=== PATIENT | male | born 1965 | race Caucasian/White ===

== ENCOUNTER 2022-04-21 12:25 | Emergency (ER) | payer OTHER ==
[2022-04-21 12:56] VITALS: BP 144/94; PULSE 102; RESP 20; TEMP 98.8; BMI 20.3
[2022-04-21] MEDS ORDERED: MAG HYDROX/AL HYDROX/SIMETH -MYLANTA- ORAL SUSPENSION PO ONE (13:49)
[2022-04-21] MEDS ORDERED: ACETAMINOPHEN 325 MG TABLET (FP) PO ONE (13:50)
[2022-04-21] MEDS ORDERED: FAMOTIDINE 20 MG/50 ML IVPB 20 MG/50 ML MG IVPB ONE ×2 (13:50→15:05)
[2022-04-21 14:32] LABS: HEMATOCRIT 43.6 % (35.4-49); MCH 31.4 pg (25.7-33.7); MCHC 34.4 g/dl (32.0-35.9); MEAN CELL VOLUME 91.4 fl (80-96); MEAN PLT VOLUME 6.6 fl (7.5-11.1); PLATELET COUNT 294 10^3/uL (134-434); RBC 4.77 M/mm3 (4.00-5.60); RDW 16.5 % (11.9-15.9); WHITE BLOOD COUNT 7.4 K/mm3 (4.0-10.0)
[2022-04-21 14:55] LABS: CALCIUM 8.9 mg/dL (8.5-10.1)
[2022-04-21 14:56] LABS: ALBUMIN 3.6 g/dl (3.4-5.0); BLOOD UREA NITROGEN 8.3 mg/dL (7-18); MAGNESIUM 2.3 mg/dL (1.8-2.4)
[2022-04-21 14:59] LABS: CREATININE 0.6 mg/dL (0.55-1.3); PHOSPHOROUS 3.1 mg/dL (2.5-4.9)
[2022-04-21 15:00] LABS: BILIRUBIN,TOTAL 0.6 mg/dL (0.2-1)
[2022-04-21] MEDS ORDERED: ALBUTEROL SO4 2.5/IPRATROPIUM 0.5 INH SOL 3 ML VIAL.NEB. NEB ONE (15:04)
[2022-04-21] MEDS ORDERED: ACETAMINOPHEN 325 MG TABLET (FP) ONE (15:04)
[2022-04-21] MEDS ORDERED: MAG HYDROX/AL HYDROX/SIMETH 30 ML UNIT-DOSE CUP ONE (15:05)
[2022-04-21] MEDS: ALBUTEROL SO4 2.5/IPRATROPIUM 0.5 INH SOL 3 ML VIAL.NEB. NEB SCH ×4 (15:12→16:00)
[2022-04-21] MEDS ORDERED: chlordiazePOXIDE HCL 25 MG CAPSULE PO ONE (17:28)
[2022-04-21] MEDS ORDERED: chlordiazePOXIDE HCL 25 MG CAPSULE ONE (17:49)
== END 2022-04-21 19:23 | disposition home or self-care (01) ==
LOC: JER 12:25
PROC: 3E0F7GC Introduction of Other Therapeutic Substance into Respiratory Tract, Via Natural or Artificial Opening (ICD-10-PCS; principal; 2022-04-21)
PROC: 3E033GC Introduction of Other Therapeutic Substance into Peripheral Vein, Percutaneous Approach (ICD-10-PCS; 2022-04-21)
DX: R10.13 Epigastric pain (principal)
CPT/HCPCS: 0241U-QW; 36415; 71046-TC-FY; 80053; 83690; 83735; 84100; 84484; 85027; 93005; 93010; 99285-25

== ENCOUNTER 2022-07-19 11:13 | Inpatient (IN) | payer OTHER ==
[2022-07-19 12:22] VITALS: BMI 24.1
[2022-07-19] MEDS ORDERED: LOPERAMIDE HCL 2 MG CAPSULE PO PRN (12:48)
[2022-07-19] MEDS ORDERED: IBUPROFEN 600 MG TABLET (FP) PO PRN (12:48)
[2022-07-19] MEDS ORDERED: ACETAMINOPHEN 325 MG TABLET (FP) PO PRN (12:48)
[2022-07-19] MEDS ORDERED: MAGNESIUM HYDROX 2400MG/30ML ORAL SUSPENSION 30 ML CUP PO PRN (12:48)
[2022-07-19] MEDS ORDERED: NICOTINE 10 MG CARTRIDGE (INHALER) IH PRN (12:48)
[2022-07-19] MEDS ORDERED: NALOXONE HCL (KLOXXADO) 8 MG SPRAY NS PRN (12:48)
[2022-07-19] MEDS ORDERED: BENZOCAINE/MENTHOL (CHLORASEPTIC ) LOZENGE MM PRN (12:48)
[2022-07-19] MEDS ORDERED: POLYETHYLENE GLYCOL (HEALTHYLAX) 3350 17 GM PACKET PO PRN (12:48)
[2022-07-19] MEDS ORDERED: ONDANSETRON *ODT* 4 MG TABLET SL PRN (12:48)
[2022-07-19] MEDS ORDERED: IBUPROFEN 400 MG TABLET (FP) PO PRN (12:48)
[2022-07-19] MEDS: LORazepam 1 MG TABLET PO PRN ×2 (13:43→20:53)
[2022-07-19] MEDS ORDERED: LORazepam 1 MG TABLET ONE (13:45)
[2022-07-19] MEDS: PRENATAL VITAMINS W/ FOLIC ACID TABLET (FP) PO SCH (14:34)
[2022-07-19] MEDS ORDERED: PRENATAL VITAMINS W/ FOLIC ACID TABLET (FP) PO ONE (14:35)
[2022-07-19] MEDS: LORazepam 2 MG TABLET PO SCH ×2 (17:17→22:54)
[2022-07-19] MEDS: ALBUTEROL SO4 HFA INHALER IH PRN (17:42)
[2022-07-19] MEDS: MAG HYDROX/AL HYDROX/SIMETH 30 ML UNIT-DOSE CUP PO PRN (17:43)
[2022-07-19 17:54] LABS: HEMATOCRIT 44.5 % (35.4-49); MCH 31.7 pg (25.7-33.7); MCHC 33.8 g/dl (32.0-35.9); MEAN CELL VOLUME 93.8 fl (80-96); MEAN PLT VOLUME 7.4 fl (7.5-11.1); PLATELET COUNT 275 10^3/uL (134-434); RBC 4.75 M/mm3 (4.00-5.60); RDW 13.8 % (11.9-15.9); WHITE BLOOD COUNT 7.7 K/mm3 (4.0-10.0)
[2022-07-19 18:04] LABS: ALBUMIN 3.7 g/dl (3.4-5.0); BILIRUBIN,TOTAL 0.8 mg/dL (0.2-1); BLOOD UREA NITROGEN 8.5 mg/dL (7-18); CALCIUM 9.2 mg/dL (8.5-10.1); CREATININE 0.8 mg/dL (0.55-1.3); TOT PROT 6.7 g/dl (6.4-8.2)
[2022-07-19] MEDS: THIAMINE HCL 100 MG TABLET (FP) PO SCH (22:54)
[2022-07-19] MEDS: MELATONIN 5 MG TABLETS PO SCH (22:54)
[2022-07-20] MEDS: ALBUTEROL SO4 HFA INHALER IH PRN ×3 (05:17→22:11)
[2022-07-20] MEDS: LORazepam 2 MG TABLET PO SCH ×4 (05:17→22:10)
[2022-07-20] MEDS: DICYCLOMINE HCL 10 MG CAPSULE PO PRN (08:43)
[2022-07-20] MEDS: BISMUTH SUBSALICYLATE 262 MG/15 ML BTL PO PRN (10:32)
[2022-07-20] MEDS: hydrOXYzine PAMOATE 25 MG CAPSULE (FP) PO PRN (10:32)
[2022-07-20] MEDS: NICOTINE 14 MG/24 HOURS TOPICAL PATCH TD SCH (10:33)
[2022-07-20] MEDS: PRENATAL VITAMINS W/ FOLIC ACID TABLET (FP) PO SCH (10:33)
[2022-07-20 13:35] LABS: HIV INTERPRETATION NEGATIVE (NEGATIVE)
[2022-07-20] MEDS: MAG HYDROX/AL HYDROX/SIMETH 30 ML UNIT-DOSE CUP PO PRN (17:09)
[2022-07-20] MEDS: MELATONIN 5 MG TABLETS PO SCH (22:09)
[2022-07-20] MEDS: THIAMINE HCL 100 MG TABLET (FP) PO SCH (22:10)
[2022-07-20] MEDS: METHOCARBAMOL 500 MG TABLET PO PRN (22:12)
[2022-07-21] MEDS: LORazepam 1 MG TABLET PO SCH ×4 (05:33→22:06)
[2022-07-21] MEDS: ALBUTEROL SO4 HFA INHALER IH PRN ×3 (05:34→22:07)
[2022-07-21] MEDS: PRENATAL VITAMINS W/ FOLIC ACID TABLET (FP) PO SCH (10:06)
[2022-07-21] MEDS: NICOTINE 14 MG/24 HOURS TOPICAL PATCH TD SCH (10:07)
[2022-07-21] MEDS: ACETAMINOPHEN 325 MG TABLET (FP) PO PRN (17:31)
[2022-07-21] MEDS: MAG HYDROX/AL HYDROX/SIMETH 30 ML UNIT-DOSE CUP PO PRN (19:17)
[2022-07-21] MEDS: THIAMINE HCL 100 MG TABLET (FP) PO SCH (22:06)
[2022-07-21] MEDS: MELATONIN 5 MG TABLETS PO SCH (22:06)
[2022-07-21] MEDS: METHOCARBAMOL 500 MG TABLET PO PRN (22:08)
[2022-07-21] MEDS: hydrOXYzine PAMOATE 25 MG CAPSULE (FP) PO PRN (22:08)
[2022-07-22] MEDS ORDERED: LORazepam 0.5 MG TABLET PO PRN
[2022-07-22] MEDS: LORazepam 0.5 MG TABLET PO SCH ×4 (05:54→22:31)
[2022-07-22] MEDS: NICOTINE 14 MG/24 HOURS TOPICAL PATCH TD SCH (10:22)
[2022-07-22] MEDS: hydrOXYzine PAMOATE 25 MG CAPSULE (FP) PO PRN (10:23)
[2022-07-22] MEDS: PRENATAL VITAMINS W/ FOLIC ACID TABLET (FP) PO SCH (10:23)
[2022-07-22] MEDS: BISMUTH SUBSALICYLATE 262 MG/15 ML BTL PO PRN (14:09)
[2022-07-22] MEDS: DICYCLOMINE HCL 10 MG CAPSULE PO PRN (14:45)
[2022-07-22] MEDS: ALBUTEROL SO4 HFA INHALER IH PRN ×2 (17:33→22:31)
[2022-07-22] MEDS: ACETAMINOPHEN 325 MG TABLET (FP) PO PRN (17:34)
[2022-07-22] MEDS: MELATONIN 5 MG TABLETS PO SCH (22:31)
[2022-07-22] MEDS: THIAMINE HCL 100 MG TABLET (FP) PO SCH (22:31)
[2022-07-22] MEDS: METHOCARBAMOL 500 MG TABLET PO PRN (22:33)
[2022-07-23] MEDS: MAG HYDROX/AL HYDROX/SIMETH 30 ML UNIT-DOSE CUP PO PRN (04:06)
[2022-07-23] MEDS ORDERED: LORazepam 0.5 MG TABLET PO ONE (05:00)
[2022-07-23] MEDS: DICYCLOMINE HCL 10 MG CAPSULE PO PRN (05:16)
[2022-07-23 09:33] VITALS: BP 118/79; PULSE 60; RESP 16; TEMP 97.3
[2022-07-23] MEDS: NICOTINE 14 MG/24 HOURS TOPICAL PATCH TD SCH (09:50)
[2022-07-23] MEDS: PRENATAL VITAMINS W/ FOLIC ACID TABLET (FP) PO SCH (09:50)
== END 2022-07-23 09:54 | disposition home or self-care (01) | DRG 775 ==
LOC: YASAS 11:13 → Y3N 14:18
PROVIDERS: ADMIT Allergy & Immunology; ATTEND Family Medicine
PROC: HZ2ZZZZ Detoxification Services for Substance Abuse Treatment (ICD-10-PCS; principal; 2022-07-19)
DX: F10.230 Alcohol dependence with withdrawal, uncomplicated (principal); F17.210 Nicotine dependence, cigarettes, uncomplicated; F41.9 Anxiety disorder, unspecified; F32.A Depression, unspecified; I25.10 Atherosclerotic heart disease of native coronary artery without angina pectoris; I10 Essential (primary) hypertension; I25.2 Old myocardial infarction; Z95.0 Presence of cardiac pacemaker; J45.20 Mild intermittent asthma, uncomplicated; K21.9 Gastro-esophageal reflux disease without esophagitis; K76.0 Fatty (change of) liver, not elsewhere classified; Z56.0 Unemployment, unspecified; Z59.01 Sheltered homelessness
CPT/HCPCS: 36415; 80053; 82140; 85027; 86780; 87389; 87811; C9803-CS; U0003; U0005